=== PATIENT | female | born 1965 | race Caucasian/White ===

== ENCOUNTER → 2016-05-07 | Outpatient (CLI) | payer BC ==
[~2016-05-07] MED LIST: DETROL LA2 MG PO; MULTIVITAMINS1 EAC1 PO; NAPROXEN500 MG PO; NORCO 7.5-3251 EACH PO; NORFLEX 100 MG100 MG PO; OSTEO BI-FLEX1 EAC1 PO; PREVACID 30 MG30 MG PO; REQUIP0.5 MG PO; VITAMIN D35000 UNIT PO
[2016-05-07 11:52] LABS: BUN/CREATININE RATIO 22 (0-10)
== END ==
LOC: LAB 10:41
PROVIDERS: Legal Medicine
DX: M15.9 Polyosteoarthritis, unspecified (principal)
CPT/HCPCS: 36415; 80053; 86140; 86431